=== PATIENT | male | born 1975 | race Caucasian/White ===

== ENCOUNTER → 2022-02-08 | Outpatient (CLI) | payer OTHER ==
--- NOTE | 2022-02-08 18:50 | CONS ---
CONSULTATION DATE OF SERVICE: 02/08/2022 This 46-year-old gentleman has been evaluated in [facility] for obstructive sleep apnea-hypopnea syndrome. HISTORY OF PRESENT ILLNESS/SLEEP-WAKE EVALUATION: Patient was diagnosed with obstructive sleep apnea-hypopnea syndrome in 2017 in another institution. He used a machine for a short time and that he quit using it for several years. He started to use the machine several months ago. The patient snores, wakes up from sleep 4 times with nocturia. He has episodes of heartburn during sleep. In the morning he wakes up tired, falling asleep during the day. Fre[place] Sleepiness Scale is in very high range at 17. His usual sleep schedule on weekdays is from 10 p.m. to 6 a.m. and on weekends the same sleep schedule. No problems with falling asleep, although he has a TV set in the bedroom. He sleeps on the back and side positions. No history of hypnagogic hallucinations, sleep paralysis or cataplexy. PAST MEDICAL HISTORY: Positive for left eye stroke, acid reflux. PAST SURGICAL HISTORY: Left ankle surgery. MEDICATIONS: Omeprazole, ibuprofen. SOCIAL HISTORY: Positive for smoking for more than 20 years, about one pack a day. Quit in September 2021. Alcohol consumption occasional. FAMILY HISTORY: Asthma, sleep apnea, snoring, cancer. REVIEW OF SYSTEMS: Loud snoring, multiple awakenings from sleep, sleepiness during the day. No fevers. No double vision. No recent chest pain. No shortness of breath. No abdominal pain. No bleeding episodes. No blood in the urine. No seizure episodes. PHYSICAL EXAMINATION: GENERAL: Pleasant gentleman without distress. VITAL SIGNS: BP 125/83, HR 82, RR 16, height 6 feet 1-1/2 inches, weight 373.2 pounds, temperature 98.2, oxygen saturation at room air 95%. Body mass index 48.5. HEENT: PERRLA, EOMI, evaluation of oropharynx showed tongue protrudes midline. Extremely low position of soft palate; Mallampati IV. NECK: Supple, no JVD. Thyroid is not palpable. Wide neck. LUNGS: Clear to percussion and to auscultation. Good air exchange. No wheezing or rhonchi. HEART: S1, S2 regular. No murmurs, gallops, or rubs. ABDOMEN: Soft and nontender. Bowel sounds are present. No organomegaly appreciated. EXTREMITIES: No clubbing or cyanosis. 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 Cranial nerves 2 to 7 intact. There is no fasciculation or atrophy. noted. No focal deficits observed. IMPRESSION: 1. Loud snoring, history of obstructive sleep apnea documented in another institution several years ago (results of sleep studies unavailable), multiple awakenings from sleep, extremely low position of soft palate, Mallampati IV, wide neck, sleepiness, Freeland Sleepiness Scale of 17; obstructive sleep apnea-hypopnea syndrome. The patient has tried to restart using CPAP equipment, but his CPAP unit is on recall. This is a Dream Station 1 from [employer]. 2. Obesity; body mass index 48.5. 3. History of left eye stroke. 4. Significant sleepiness with Freeland Sleepiness Scale of 17, dictating necessity to include hypersomnia and narcolepsy in differential diagnosis, although most probably all abnormalities are related to sleep apnea. 5. Acid reflux. 6. Status post left ankle surgery. 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 PLAN: 1. Polysomnography for evaluation of patient's breathing during sleep. 2. CPAP/BiPAP titration if sleep study confirms obstructive sleep apnea-hypopnea syndrome. 3. Preferable position during sleep on the side. 4. Extreme precautions related to driving. No driving if feeling any sleepiness. Patient is aware of civil and criminal liability for unsafe driving. 5. I will see patient for follow up visit to explain results of testing and following plan. Thank you very much for referring this patient for consultation. Sincerely, Darren Torres MD, PhD, FAASM Diplomat of [place] Board of Medical Specialties Sleep Medicine Board of [place] Board of Internal Medicine Medical Coding Specialist of [facility] [place] MMODL / IJN: [id number] /
== END | disposition home or self-care (01) ==
LOC: SLEEP 14:03
PROVIDERS: ATTEND Internal Medicine
DX: G47.33 Obstructive sleep apnea (adult) (pediatric) (principal); E66.9 Obesity, unspecified; K21.9 Gastro-esophageal reflux disease without esophagitis; Z86.69 Personal history of other diseases of the nervous system and sense organs; Z68.42 Body mass index [BMI] 45.0-49.9, adult; Z98.890 Other specified postprocedural states
CPT/HCPCS: 99202

== ENCOUNTER → 2022-10-10 | Outpatient (CLI) | payer OTHER ==
--- NOTE | 2022-10-10 16:26 | P.PN ---
Subjective DATE: [] FOLLOW UP VISIT. Patient with obstructive sleep apnea hypopnea syndrome return to sleep center for follow-up visit. Recently patient had sleep study which documented obstructive sleep apnea hypopnea syndrome. Patient was initiated on BPAP therapy and today is first visit after treatment with BiPAP was started. Previous treatment with CPAP equipment in another institution was not successful. Patient was able to use BPAP equipment every night for the whole night. The patient does not have significant problems with the mask, PAP pressure and humidification. [place] sleepiness scale is 7, which is normal. I checked information from PAP unit. PAP unit pressure maximal inspiratory pressure 22, minimal expiratory pressure 1 5, pressure-support 4 cm H2O. Usage is 97% for more then 4 hours, average 6.5 hours per night. Leak is high 55.6 l/m. Apnea Hypopnea Index is 2.8, which is normal. MEDICATIONS:1. Omeprazole 2. Ibuprofen During physical exam: GENERAL: A pleasant patient without any distress. VITAL SIGNS: BP 126/78, HR 88, RR 16, weight 405, temperature 98.1, oxygen saturation at room air 98%. HEENT: PERRLA, EOMI.low position of soft palate, Mallapati 4 . NECK: Supple. No JVD. LUNGS: Clear to percussion and to auscultation. Good air exchange. No wheezing or rhonchi. HEART: S1, S2 regular. ABDOMEN: Soft and nontender. Obese EXTREMITIES: No clubbing or cyanosis. 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 No focal deficit. Impressions: 1. Obstructive sleep apnea-hypopnea syndrome in severe range, apnea-hypopnea index 77.6 with oxygen discharged 78.9%.. Patient demonstrated great compliance with treatment, benefiting from treatment, respiration normalized on BiPAP. 2. Obesity. 3. History of left eye stroke. 4. Acid reflux. 5. Status post left ankle surgery. 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 Plan: 1. Continue using BPAP equipment every night for the whole night. 2. To change air filter at least 1-2 times per month. 3. PAP unit should stay lower then position of the head. 4. Advised patient to remove all remaining water from humidifier canister daily and make it dry after each usage. Refill canister with fresh distilled water before each usage. 5. Sleep hygiene with regular time in bed for at least 8 hours. 6. Precautions related to driving. No driving if feel any sleepiness. Patient is aware about civil and criminal liability for unsafe driving. 7. I will maintain prescription for PAP supplies including mask, tube, filters. 8. Follow up visit in 6 months or earlier if patient has any problems. 9. Watching and losing weight. Thank you very much for allowing me to participate in the management of your patient. Darren Torres MD, PhD, FAASM. Diplomat of [place] [employer], Sleep Medicine Board by [place] [employer] Pot Tender of [facility] [place]
== END | disposition home or self-care (01) ==
LOC: SLEEP 15:45
PROVIDERS: ATTEND Internal Medicine
DX: G47.33 Obstructive sleep apnea (adult) (pediatric) (principal); E66.9 Obesity, unspecified; Z86.73 Personal history of transient ischemic attack (TIA), and cerebral infarction without residual deficits; K21.9 Gastro-esophageal reflux disease without esophagitis; R63.4 Abnormal weight loss

== ENCOUNTER 2024-05-19 18:13 | Emergency (ER) | payer OTHER ==
[2024-05-19 18:18] VITALS: RESP 18; TEMP 98.1
--- NOTE | 2024-05-19 18:51 | XR ---
EXAMINATION TYPE: XR KUB DATE OF EXAM: 05/19/2024 Comparison: None Clinical History: 48-year-old male abdominal pain Findings: Large patient body habitus limits the assessment. Lung bases appear clear allowing for motion artifac ts. No evidence for free intraperitoneal air. Gassy colon with multiple air-fluid levels. Small air-fluid levels within the small bowel as well wit hout abnormal dilatation. No significant stool burden. Limited assessment for calcifications due to body habitus. Impression: Scattered air-fluid levels throughout the colon and small bowel suggesting generalized ileus or enter itis. Overall nonobstructive bowel gas pattern. No free air.
[2024-05-19 18:58] LABS: Basophils % (A) 0 %; Eosinophils % (A) 1 %; HCT 46.8 % (39.0-53.0); HGB 15.1 gm/dL (13.0-17.5); Lymphocytes # (A) 1.5 k/uL (1.0-4.8); Lymphocytes % (A) 11 %; MCH 28.5 pg (25.0-35.0); MCHC 32.1 g/dL (31.0-37.0); MCV 88.8 fL (80.0-100.0); Mean Platelet Volume 6.8; Monocytes % (A) 4 %; Neutrophils # (A) 11.8 k/uL (1.3-7.7); Neutrophils % (A) 83 %; Platelet Count 272 k/uL (150-450); RBC 5.28 m/uL (4.30-5.90); RDW 13.5 % (11.5-15.5); WBC 14.2 k/uL (3.8-10.6)
[2024-05-19 18:59] LABS: Eosinophils # (A) 0.2 k/uL (0-0.7); Monocytes # (A) 0.6 k/uL (0-1.0)
[2024-05-19 19:30] LABS: ALT 28 U/L (4-49); AST 33 U/L (17-59); African American GFR (CKD) >90 (>60 ml/min/1.73 sqM); Albumin 4.7 g/dL (3.5-5.0); Alkaline Phosphatase 90 U/L (38-126); Amylase 50 U/L (30-110); Anion Gap 10 mmol/L; Blood Urea Nitrogen 25 mg/dL (9-20); Calcium 9.6 mg/dL (8.4-10.2); Carbon Dioxide 18 mmol/L (22-30); Chloride 108 mmol/L (98-107); Glucose 131 mg/dL (74-99); Lipase 99 U/L (23-300); Non-African American GFR(CKD) >90 (>60 ml/min/1.73 sqM); Potassium 4.2 mmol/L (3.5-5.1); Sodium 136 mmol/L (137-145); Total Protein 8.2 g/dL (6.3-8.2)
--- NOTE | 2024-05-19 19:43 | ED ---
Abdominal Pain HPI - General Chief Complaint: Nausea/Vomiting/Diarrhea Stated Complaint: abd pain/NVD Time Seen by Provider: 05/19/24 18:21 Source: patient, RN notes reviewed Mode of arrival: ambulatory Limitations: no limitations - History of Present Illness Initial Comments: This is a 48-year-old male who presents to the emergency department for abdomi nal pain, nausea, and vomiting. States that it started last night around 10:30 PM. Reports associated diarrhea as well. He has not measured any fevers, but has felt hot and cold. His abdomen feels bloated and full and states that he is belching excessively. This has the taste and smell of rotten eggs. He had similar but less severe symptoms several weeks ago. This was attributed to Ozempic, but states that he has not used this in about 2 months. Denies any sick contacts. He last threw up around 5 PM today. MD Complaint: abdominal pain - Related Data Previous Rx's Medication Instructions Recorded Celecoxib 200 mg PO BID PRN #30 cap 05/19/24 Metoclopramide [Reglan] 10 mg PO Q6H PRN #30 tab 05/19/24 Ondansetron Odt [Zofran Odt] 4 mg PO Q8HR PRN #20 tab 05/19/24 Allergies Allergy/AdvReac Type Severity Reaction Status Date / Time Penicillins Allergy Rash/Hives Verified 05/19/24 18:18 Review of Systems ROS Statement: Those systems with pertinent positive or pertinent negative responses have been documented in the HPI. ROS Other: All systems not noted in ROS Statement are negative. Past Medical History Past Medical History: GERD/Reflux, Hypertension History of Any Multi-Drug Resistant Organisms: None Reported Additional Past Surgical History / Comment(s): ankle surgery Past Psychological History: No Psychological Hx Reported Smoking Status: Former smoker, Never smoker Past Alcohol Use History: Rare Past Drug Use History: None Reported General Exam Limitations: no limitations General appearance: alert, in no apparent distress Head exam: Present: atraumatic, normocephalic, normal inspection Respiratory exam: Present: normal lung sounds bilaterally. Absent: respiratory distress, wheezes, rales, rhonchi, stridor Cardiovascular Exam: Present: regular rate, normal rhythm, normal heart sounds. Absent: systolic murmur, diastolic murmur, rubs, gallop, clicks GI/Abdominal exam: Present: soft, tenderness (Upper abdomen), normal bowel s ounds. Absent: distended Neurological exam: Present: alert, oriented X3, CN II-XII intact Psychiatric exam: Present: normal affect, normal mood Skin exam: Present: warm, dry, intact, normal color. Absent: rash Course Vital Signs 05/19/24 05/19/24 05/19/24 18:14 21:07 21:55 Temperature 98.1 F Pulse Rate 57 L 78 77 Respiratory 18 18 18 Rate Blood Pressure 126/83 120/68 116/72 O2 Sat by Pulse 96 96 98 Oximetry Medical Decision Making - Medical Decision Making This is a 48 year old male who presents to the emergency department for abdominal pain. Was pt. sent in by a medical professional or institution? @ -No Did you speak to anyone other than the patient for history? @ -No Did you review nursing and triage notes? @ -Yes, and I agree, it is accurate with regards to the patient's symptoms. Were old charts reviewed? @ -No Differential Diagnosis? @ -Differential Abdominal Pain Men: Appendicitis, cholecystitis, diverticulosis, ischemic bowel, pancreatitis, hepatitis, UTI, gastroenteritis, AAA, incarcerated hernia, bowel obstruction, constipation, inflammatory bowel, hepatitis, peptic ulcer disease, splenic infarction, perforated viscus, testicular torsion, this is not meant to be an all-inclusive list EKG interpreted by me (3pts min.)? @ -EKG interpreted by me demonstrating the following: Sinus rhythm. Ventricular rate 90 bpm, MO interval 169 ms, QRS duration 110 ms, QTc 397 ms. X-rays interpreted by me (1pt min.)? @ -KUB x-ray obtained. My interpretation identifies air-fluid levels in the colon. CT interpreted by me (1pt min.)? @ -CT scan of the abdomen and pelvis obtained. My interpretation identifies prominent fluid in the stomach. U/S interpreted by me (1pt. min.)? @ -Not obtained What testing was considered but not performed? (CT, X-rays, U/S, labs)? Why? @ -None What meds were considered but not given? Why? @ -None Did you discuss the management of the patient with other professionals? @ -No Did you reconcile home meds? @ -No Was smoking cessation discussed for >3mins.? @ -No Was critical care preformed (if so, how long)? @ -No Were there social determinants of health that impacted care today? How? (Homelessness, low income, unemployed, alcoholism, drug addiction, transportation, low edu. Level, literacy, decrease access to med. care, detention, rehab)? @ -No Was there de-escalation of care discussed even if they declined? (Discuss DNR or withdrawal of care, Hospice)? @ -No What co-morbidities impacted this encounter? (DM, HTN, Smoking, COPD, CAD, Cancer, CVA, Hep., AIDS, mental health diagnosis, sleep apnea, morbid obesity)? @ -GERD, morbid obesity Was patient admitted / discharged? @ -Discharged. Lab work demonstrates leukocytosis and signs of dehydration. KUB x-ray was obtained initially demonstrating scattered air-fluid levels throughout the colon and small bowel suggesting a generalized ileus or enteritis. CT scan was subsequently obtained for further evaluation. He was found to have prominent fluid within the stomach and additional liquid stool scattered throughout the colon and possible mild circumferential wall thickening of the sigmoid colon. They advised consideration of a nonspecific mild gastroenteritis versus enterocolitis. Findings reviewed with the patient. Symptoms well-controlled in the emergency department. Prescription for Celebrex, Zofran, and Reglan provided with dosing instructions reviewed. Advised slowly advancing his diet as tolerated, remaining well-hydrated, and having follow-up with his PCP. Undiagnosed new problem with uncertain prognosis? @ -None Drug Therapy requiring intensive monitoring for toxicity (Heparin, Nitro, Insulin, Cardizem)? @ -None Were any procedures done? @ -None Diagnosis/symptom? @ -Enteritis/gastroenteritis Acute, or Chronic, or Acute on Chronic? @ -Acute Uncomplicated (without systemic symptoms) or Complicated (systemic symptoms)? @ -Uncomplicated Side effects of treatment? @ -None Exacerbation, Progression, or Severe Exacerbation] @ -Not applicable Poses a threat to life or bodily function? @ -No Return precautions reviewed in depth, the patient is instructed to return to the emergency department with any new, worsening, or concerning symptoms. Patient verbalized understanding. This case was discussed in detail with the attending ED physician, Dr. Jerry. Presentation, findings, and treatment plan discussed in detail as well. - Lab Data Result diagrams: 05/19/24 18:38 05/19/24 18:38 Lab Results 05/19/24 05/19/2405/19/24 Range/Units 18:38 18:38 18:38 WBC 14.2 H (3.8-10.6) k/uL RBC 5.28 (4.30-5.90) m/uL Hgb 15.1 (13.0-17.5) gm/dL Hct 46.8 (39.0-53.0) % MCV 88.8 (80.0-100.0) fL MCH 28.5 (25.0-35.0) pg MCHC 32.1 (31.0-37.0) g/dL RDW 13.5 (11.5-15.5) % Plt Count 272 (150-450) k/uL MPV 6.8 Neutrophils % 83 % Lymphocytes % 11 % Monocytes % 4 % Eosinophils % 1 % Basophils % 0 % Neutrophils # 11.8 H (1.3-7.7) k/uL Lymphocytes # 1.5 (1.0-4.8) k/uL Monocytes # 0.6 (0-1.0) k/uL Eosinophils # 0.2 (0-0.7) k/uL Basophils # 0.0 (0-0.2) k/uL Sodium 136 L (137-145) mmol/L Potassium 4.2 (3.5-5.1) mmol/L Chloride 108 H (98-107) mmol/L Carbon Dioxide 18 L (22-30) mmol/L Anion Gap 10 mmol/L BUN 25 H (9-20) mg/dL Creatinine 0.72 (0.66-1.25) mg/dL Est GFR (CKD-EPI)AfAm >90 (>60 ml/min/1.73 sqM) Est GFR (CKD-EPI)NonAf >90 (>60 ml/min/1.73 sqM) Glucose 131 H (74-99) mg/dL Plasma Lactic Acid Russ (0.7-2.0) mmol/L Calcium 9.6 (8.4-10.2) mg/dL Total Bilirubin 1.0 (0.2-1.3) mg/dL AST 33 (17-59) U/L ALT 28 (4-49) U/L Alkaline Phosphatase 90 (38-126) U/L Total Protein 8.2 (6.3-8.2) g/dL Albumin 4.7 (3.5-5.0) g/dL Amylase 50 (30-110) U/L Lipase 99 (23-300) U/L Urine Color Yellow Urine Appearance Clear (Clear) Urine pH 5.5 (5.0-8.0) Ur Specific [place] 1.033 (1.001-1.035) Urine Protein Trace H (Negative) Urine Glucose (UA) Negative (Negative) Urine Ketones Negative (Negative) Urine Blood Small H (Negative) Urine Nitrite Negative (Negative) Urine Bilirubin Negative (Negative) Urine Urobilinogen <2.0 (<2.0) mg/dL Ur Leukocyte Esterase Small H (Negative) Urine RBC 2 (0-5) /hpf Urine WBC 7 H (0-5) /hpf Ur Squamous Epith Cells 1 (0-4) /hpf Urine Mucus Moderate H (None) /hpf 05/19/24 Range/Units 18:38 WBC (3.8-10.6) k/uL RBC (4.30-5.90) m/uL Hgb (13.0-17.5) gm/dL Hct (39.0-53.0) % MCV (80.0-100.0) fL MCH (25.0-35.0) pg MCHC (31.0-37.0) g/dL RDW (11.5-15.5) % Plt Count (150-450) k/uL MPV Neutrophils % % Lymphocytes % % Monocytes % % Eosinophils % % Basophils % % Neutrophils # (1.3-7.7) k/uL Lymphocytes # (1.0-4.8) k/uL Monocytes # (0-1.0) k/uL Eosinophils # (0-0.7) k/uL Basophils # (0-0.2) k/uL Sodium (137-145) mmol/L Potassium (3.5-5.1) mmol/L Chloride (98-107) mmol/L Carbon Dioxide (22-30) mmol/L Anion Gap mmol/L BUN (9-20) mg/dL Creatinine (0.66-1.25) mg/dL Est GFR (CKD-EPI)AfAm (>60 ml/min/1.73 sqM) Est GFR (CKD-EPI)NonAf (>60 ml/min/1.73 sqM) Glucose (74-99) mg/dL Plasma Lactic Acid Russ 1.0 (0.7-2.0) mmol/L Calcium (8.4-10.2) mg/dL Total Bilirubin (0.2-1.3) mg/dL AST (17-59) U/L ALT (4-49) U/L Alkaline Phosphatase (38-126) U/L Total Protein (6.3-8.2) g/dL Albumin (3.5-5.0) g/dL Amylase (30-110) U/L Lipase (23-300) U/L Urine Color Urine Appearance (Clear) Urine pH (5.0-8.0) Ur Specific [place] (1.001-1.035) Urine Protein (Negative) Urine Glucose (UA) (Negative) Urine Ketones (Negative) Urine Blood (Negative) Urine Nitrite (Negative) Urine Bilirubin (Negative) Urine Urobilinogen (<2.0) mg/dL Ur Leukocyte Esterase (Negative) Urine RBC (0-5) /hpf Urine WBC (0-5) /hpf Ur Squamous Epith Cells (0-4) /hpf Urine Mucus (None) /hpf - Radiology Data Radiology results: report reviewed, image reviewed Disposition Clinical Impression: Enteritis Disposition: HOME SELF-CARE Instructions (If sedation given, give patient instructions): Gastroenteritis (ED), Acute Nausea and Vomiting (ED), Acute Diarrhea (ED), Enteritis (ED) Additional Instructions: Return to the emergency department with any new, worsening, or concerning symptoms. Take the Celebrex twice daily with Tylenol as needed for pain relief. You can take the Zofran up to every 8 hours as needed for nausea and vomiting. You can take the Reglan up to every 6 hours to help with GI upset as well as any additional nausea. Slowly advance your diet as tolerated and remain well- hydrated. Follow up with your primary care provider in 1-2 days. Prescriptions: Celecoxib 200 mg PO BID PRN #30 cap PRN Reason: Pain Metoclopramide [Reglan] 10 mg PO Q6H PRN #30 tab PRN Reason: Gi Upset Ondansetron Odt [Zofran Odt] 4 mg PO Q8HR PRN #20 tab PRN Reason: Nausea And Vomiting Is patient prescribed a controlled substance at d/c from ED?: No Referrals: Efraín Huerta MD [Primary Care Provider] - 1-2 days
[2024-05-19] MEDS: SODIUM CHLORIDE 0.9% 1,000 ML IV STA (20:21)
[2024-05-19] MEDS: FAMOTIDINE 20 MG/2 ML VIAL IV STA (20:22)
[2024-05-19] MEDS: KETOROLAC 15 MG/ML 1 ML VIAL IVP STA (20:22)
[2024-05-19] MEDS: ONDANSETRON 4 MG/2 ML VIAL IVP STA (20:22)
[2024-05-19 20:38] LABS: Appearance,Urine Clear (Clear); Bilirubin,Urine Negative (Negative); Blood,Urine Small (Negative); Color,Urine Yellow; Glucose,Urine (UA) Negative (Negative); Ketones,Urine Negative (Negative); Leukocyte Esterase,Urine Small (Negative); Mucus,Urine Moderate /hpf; Nitrite,Urine Negative (Negative); PH, Urine 5.5 (5.0-8.0); Protein,Urine Trace (Negative); RBC,Urine 2 /hpf (0-5); Specific Gravity,Urine 1.033 (1.001-1.035); Squamous Epithelial Cell,Urine 1 /hpf (0-4); Urobilinogen,Urine <2.0 mg/dL (<2.0); WBC,Urine 7 /hpf (0-5)
--- NOTE | 2024-05-19 21:09 | CT ---
EXAMINATION TYPE: CT abdomen pelvis w con DATE OF EXAM: 05/19/2024 COMPARISON: NONE HISTORY: 48-year-old male c/o n/v/d, started this morning. Had this once before and was told that it was due to the Ozempic shot but he has not been on the shot in about 3-4 months. Pt states he is belc omid and it taste/smells like rotten eggs. TECHNIQUE: Contiguous axial scanning of the abdomen and pelvis following administration of 100 ml Iso chiki 300 IV contrast. Delayed images through the kidneys and coronal/sagittal reconstructions perform ed. CT DLP: 4149.4 mGycm Automated exposure control for dose reduction was used. FINDINGS: Heart normal size pericardial effusion. Strandy atelectasis posterior lung bases without pl eural effusion. Liver borderline enlarged at 17.4 cm with markedly diminished attenuation. Portal venous system is pa tent. No biliary ductal dilatation. Gallbladder, adrenal glands, right kidney, spleen, and pancreas within normal limits. Left kidney shows parapelvic cysts measuring up to 2.6 cm and a posterior upper pole cortical cyst me asuring up to 4.3 cm. No dilated small bowel, free fluid, or free air. No mesenteric or retroperitoneal lymphadenopathy. Prominent ingested debris and fluid distending the stomach. However, no obstructing lesion is seen. N o dilated small bowel, free fluid, or free air. No mesenteric or retroperitoneal lymphadenopathy. Liquid stool is present within the right side of the colon and additional scattered throughout the tr ansverse and descending colon. Circumferential mild wall thickening of the sigmoid colon may be due to nondistention. No periglottic inflammatory change. Mild circumferential bladder wall thickening. No abnormal fluid collection in the pelvis or pelvic ly mphadenopathy. Small 2.0 cm fatty umbilical hernia. Bones: Moderate degenerative disc disease throughout the visualized thoracolumbar spine. IMPRESSION: 1. BORDERLINE HEPATOMEGALY AT 17.4 CM WITH SEVERE HEPATIC STEATOSIS. APPROPRIATE CLINICAL MANAGEMENT IS ADVISED. 2. PROMINENT FLUID WITHIN THE STOMACH. ADDITIONAL LIQUID STOOL SCATTERED THROUGHOUT THE COLON AND POS SIBLE MILD CIRCUMFERENTIAL WALL THICKENING OF THE SIGMOID COLON. CONSIDER A NONSPECIFIC MILD GASTROEN TERITIS/ENTEROCOLITIS. 3. SOME CIRCUMFERENTIAL BLADDER WALL THICKENING MAY BE CHRONIC FOR THE PATIENT. CORRELATE TO EXCLUDE CYSTITIS. 4. SMALL 2.0 CM FATTY UMBILICAL HERNIA.
[2024-05-19] MEDS: ONDANSETRON 4 MG ODT STARTER PACK 2 TAB BTL PO STA (21:38)
[2024-05-19] MEDS: ACET/COD 300 MG/30 MG STARTER PACK 6 TAB BTL PO STA (21:38)
[2024-05-19] MEDS: METOCLOPRAMIDE 5 MG/ML 2 ML VIAL IVP STA (21:39)
[2024-05-19 21:56] VITALS: BP 116/72; PULSE 77
== END 2024-05-19 22:18 | disposition home or self-care (01) ==
LOC: EC 18:13
DX: K52.9 Noninfective gastroenteritis and colitis, unspecified (principal); K21.9 Gastro-esophageal reflux disease without esophagitis; E66.01 Morbid (severe) obesity due to excess calories; Z88.0 Allergy status to penicillin; Z87.891 Personal history of nicotine dependence; Z68.43 Body mass index [BMI] 50.0-59.9, adult
CPT/HCPCS: 36415; 93005; 80053; 82150; 83605; 83690; 85025; 81001; 74018; 74177; 99285; 96374; 96375 ×3; 96361 ×2; J2765; J2405; J3490; J1885; S0119; Q9967